=== PATIENT | male | born 1970 | race Caucasian/White ===

== ENCOUNTER 2022-03-09 08:34 | Outpatient (CLI) | payer OTHER, SELFPAY ==
[2022-03-09 18:55] LABS: SARS PCR* Negative SARS-CoV-2 (Negative)
== END 2022-03-09 08:35 | disposition home or self-care (01) ==
LOC: LONREF 08:34
PROVIDERS: PCP Orthopaedic Surgery; Visit Provider Orthopaedic Surgery
DX: Z20.822 Contact with and (suspected) exposure to COVID-19 (principal); Z01.818 Encounter for other preprocedural examination
CPT/HCPCS: 87635

== ENCOUNTER 2022-03-10 06:20 | Day surgery (SDC) | payer OTHER, SELFPAY ==
[2022-03-10] VITALS (23 sets, daily range): BP systolic 85–159; BP diastolic 51–100; PULSE 64–98; RESP 14–20; TEMP 35.7–37.3; O2SAT 91–99; BMI 39.8
[2022-03-10] MEDS: MIDAZOLAM HCL 1 MG/ML inj IVP (06:22)
[2022-03-10] MEDS: LACTATED RINGERS 1000 ML 1,000 ML 100 ML IV ×2 (06:30→08:24)
[2022-03-10] MEDS: ACETAMINOPHEN 500 MG TABLET 1000 MG PO ×3 (07:15→23:57)
[2022-03-10] MEDS: CELECOXIB 200 MG CAPSULE PO ×2 (07:15→22:19)
[2022-03-10] MEDS: OXYCODONE (CR) 10 MG TAB.ER.12H PO (07:15)
[2022-03-10] MEDS: SODIUM CHLORIDE 0.9 % (FLUSH) 10 ML SYRINGE IVF (07:16)
[2022-03-10] MEDS: ETHYL CHLORIDE 1 APPLICATION 1 APPLIC TOPICAL (07:16)
--- NOTE | 2022-03-10 07:19 | SUR.PREOP ---
TIME?OUT:?93 PT/RN VANDANA /BELLE SEGUNDO?VERIFICATION?OF?SURGICAL?SITE RIGHT KNEE,?PROCEDURE NERVE BLOCK,?AND?CONSENT OBTAINED?PRIOR?TO?INVASIVE?PROCEDURE.
[2022-03-10] MEDS: fentaNYL 100 MCG/2 ML inj IVP (07:29)
[2022-03-10] MEDS: CEFAZOLIN 1 GM inj 3 GM IVP (07:50)
[2022-03-10] MEDS: TRANEXAMIC ACID 100 MG/ML INJ 1000 MG IV (08:00)
--- NOTE | 2022-03-10 08:43 | SUR.OPER ---
Patient was transferred from Same Day Surgery Unit to OR2 by bed. Patient was assisted to transfer to the OR bed without issues. Patient was positioned per TELEPHONE OPERATORS SUPERVISOR to have spinal injection performed. Once completed patient was assisted into supine position. 2 warm blankets were provided to provide warmth and comfort.
--- NOTE | 2022-03-10 08:54 | W.PM.NB ---
Nerve Block Nerve Block Time Seen by Provider: 07:25 Type of block requested by surgeon for post-operative analgesia: adductor canal Side: right Time out performed: Yes Verification of patient name: Yes Verification of date of : Yes Site marking: site marked Name of person performing procedure: Haile Continuous monitoring Was continuous monitoring of O2 sat, B/P, surveillance system monitor, recorded every 15 minutes?: Yes Procedure Checklist: sterile prep, needles and gloves Ultrasound guided. Images saved: Yes Medications given in 5ml increments after negative aspiration: Ropivicaine %: 0.5 mL: 20 Needle gauge: 22 Decadron (mg): 10 Precedex (mcg): 25 Patient tolerated procedure well: Yes Additional comments: Needle noted adjacent to nerve Block Charges Block Charge (with Pro Fee): Femoral Nerve Use of Ultrasound Machine for Block: Yes- US Guidance/pain block
--- NOTE | 2022-03-10 08:54 | W.PM.NB ---
Nerve Block Nerve Block Time Seen by Provider: 07:25 Date Seen: 03/10/22 Type of block requested by surgeon for post-operative analgesia: geniculars Side: right Time out performed: Yes Verification of patient name: Yes Verification of date of : Yes Site marking: site marked Name of person performing procedure: Haile Continuous monitoring Was continuous monitoring of O2 sat, B/P, quality assurance monitor, recorded every 15 minutes?: Yes Procedure Checklist: sterile prep, needles and gloves Medications given in 5ml increments after negative aspiration: Ropivicaine %: 0.5 mL: 9 Needle gauge: 25 Patient tolerated procedure well: Yes Block Charges Block Charge (with Pro Fee): Genicular Nerve Block Use of Ultrasound Machine for Block: No
--- NOTE | 2022-03-10 09:36 | CRLHL7_ITS ---
For Patients: As a result of the Cures Act, medical imaging exams and procedure reports are released immediately into your electronic medical record. You may view this report before your referring provider. If you have questions, please contact your health care provider. Indication: Postop Technique: Two views right knee Findings/Impression: Hardware from a right total knee arthroplasty is in satisfactory position. Bone alignment is normal. No sign of acute fracture. Postop changes are within normal limits. Dictated by Juan Ramon Galvan MD @ 03/10/2022 10:45:13 AM (Electronically Signed)
--- NOTE | 2022-03-10 10:11 | W.ANESCHARGE ---
Anesthesia Charges Start Date/Time Anesthesia Start Date: 03/10/22 Anesthesia Start Time: 07:50 Stop Date/Time Anesthesia Stop Date: 03/10/22 Anesthesia Stop Time: 10:09 Summary Emergency: No
--- NOTE | 2022-03-10 10:42 | W.ANESCHARGE ---
Anesthesia Charges Start Date/Time Anesthesia Start Date: 03/10/22 Anesthesia Start Time: 07:50 Stop Date/Time Anesthesia Stop Date: 03/10/22 Anesthesia Stop Time: 10:09 Summary Emergency: No
[2022-03-10] MEDS: HYDROmorphone 0.5 mg/0.5 ml inj IVP ×4 (11:02→22:17)
--- NOTE | 2022-03-10 11:03 | P.ORPRC_ITS ---
Procedure Note Date of procedure: 03/10/22 Procedure: SURGEON: Royer Reyes MD TECHNICAL SOLUTIONS DIRECTOR: PAUL Morejon PREOPERATIVE DIAGNOSIS: Right knee osteoarthritis, retained hardware POSTOPERATIVE DIAGNOSIS: Right knee osteoarthritis, retained hardware NAME OF OPERATION: Right total knee arthroplasty, hardware removal deep ANESTHESIA: Spinal ESTIMATED BLOOD LOSS: 0 mL COMPLICATIONS: None SPECIMENS: None DRAINS: None PREOPERATIVE ANTIBIOTICS: Ancef 3 grams IMPLANTS: 1. J&J Attune # 8 posterior stabilized femur 2. # 8 fixed-bearing tibia 3. #8 posterior stabilized, 7 mm fixed-bearing polyethylene 4. 41 patella INDICATIONS: The patient is a 51-year-old male with a longstanding history of severe, unrelenting right knee pain secondary to end-stage (grade IV) right knee osteoarthritis. Despite appropriate nonoperative management, including activity modification, anti-inflammatories, [id number]-[id number] pain medication, bracing, physical therapy, and injections they continue to have pain and disability. Operative intervention was offered. The risks, benefits and expected outcomes were discussed in detail. These included but were not limited to: Infection, bleeding, injury to blood vessel or nerve, venous thromboembolism. All questions were answered to their satisfaction. Use of an assistant director of admissions was necessary throughout the case for patient positioning and safety, soft tissue retraction, and closure. PROCEDURE: Spinal anesthesia was administered. The patient was placed supine on the operating table. The assistant director of admissions made sure the patient was positioned appropriately. The lower extremity was prepped and draped in the usual sterile fashion. The limb was exsanguinated with the Jay bandage. The pneumatic tourniquet was inflated to 300 mmHg. A standard anterior incision was made with the knee in flexion. Subcutaneous dissection was sharply taken through fascial layer #1. Full-thickness medial and lateral flaps were elevated. The assistant director of admissions retracted the soft tissues and protected them throughout the case. A standard medial parapatellar approach was made. The patella was everted. The infrapatellar fat pad was preserved. The menisci and cruciate ligaments were sharply d?brided. Marginal osteophytes were d?brided with the rongeur. The drill was used to penetrate the femoral canal. The canal was aspirated and irrigated with pulse lavage. The intramedullary femoral guide was placed for a 5-degree valgus cut, removing 10 mm off the distal femur. We were able to avoid previously placed screw, used as a post for his previous, 2 incision, ACL reconstruction. The saw was used to make the cut. Whitesides line and the trans epicondylar axis were marked. The femoral sizing guide was pinned onto the distal femur. Three degrees of external rotation nicely parallels the transepicondylar axis. Pins were placed for posterior referencing. The fou r-in-one cutting guide was pinned onto the distal femur. The anterior, posterior, and chamfer cuts were made. The assistant director of admissions protected the collateral ligaments. The box cutting guide was pinned. The box cuts were made. The boxed trial was placed and was an excellent fit. Drill holes for the lugs were made. Attention was then turned to the proximal tibia. The extramedullary tibial guide was placed for a neutral varus/valgus cut with 5 degrees of posterior slope, removing 1 mm based off the medial tibial surface. The assistant director of admissions protected the collateral ligaments and the neurovascular bundle. The saw was used to make the cut. This exposed the tip of the tibial interference ACL reconstruction screw. Dissection was carried over medial aspect of the tibial metaphysis, locating the head of the screw. The osteotome was used to clear off the head. It was removed retrograde, intact. Trial components were placed. The knee was nicely balanced in both flexion and extension. Rotation of the tibial component was matched to the femur in full extension, matched to our tibial cutting pins, and marked with cautery. The trial components were removed. The tray was pinned by the assistant director of admissions and the drill and the punch were used. The tray was removed. The punch was used again. We placed a bone plug in the femoral canal. The tibial screw tract was bone grafted with cancellous autograft. Attention was then turned to the patella. [place] patellar thickness was 27.5 mm. The lobster claw resection guide was used with the 9.5 mm jennie. The saw was used to make the cut. Drill holes were made by the assistant director of admissions. The trial was placed and was an excellent fit. Cancellous surfaces were irrigated with pulse lavage and thoroughly dried by the assistant director of admissions. We cemented the tibial component, then the femoral component. A trial spacer was placed. The knee was brought into full extension. We then cemented the patellar component. Excessive cement was removed. The cement was allowed to harden. Any remaining excessive cement was removed with the osteotome. We impacted the 7 mm polyethylene onto the tibial tray. The knee was taken through a range of motion and was found to be nicely balanced in both flexion and extension. The patella tracks centrally. The assistant director of admissions did a three minute dilute Betadine solution soak. The assistant director of admissions irrigated the wound with 3 liters of normal saline via pulse lavage. The assistant director of admissions reapproximated the extensor mechanism with #1 Vicryl in an interrupted [id number] fashion. The assistant director of admissions then ran the extensor mechanism with a #1 PDO Stratafix. The assistant director of admissions closed the subcutaneous tissues with a 3-0 Stratafix and the skin with a running 3-0 Stratafix in a subcuticular fashion. Glue was used to seal the skin. The assistant director of admissions placed a dry dressing, SHAKILA stocking, and Polar Care. Sponge and needle counts were correct x2. The patient tolerated the procedure well. There were no apparent complications. They were carefully transferred to the hospital bed and taken to the postanesthesia care unit in satisfactory condition. PLAN: The patient will be mobilized with physical therapy. Aspirin will be used for DVT prophylaxis. They will be discharged to home once medically appropriate.
[2022-03-10 12:54] LABS: Sodium* 137 mmol/L (135-149)
[2022-03-10] MEDS: OXYCODONE 5 MG TABLET PO ×4 (13:18→22:18)
--- NOTE | 2022-03-10 14:01 | PC.NURSE ---
End of Shift Note: Patient arrive to the unit around 1100. He has steadily rated his pain a 7-8/10 but shows not signs of pain. no facial grimace is able to talk in complete sentences. Has received pain medication see MAR. Is tolerating a regular diet.
[2022-03-10] MEDS: CEFAZOLIN 3 GM in 0.9 % SODIUM CHLORIDE 100 ml 100 ML IVPB ×2 (15:45→22:20)
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
[2022-03-10] MEDS: SENNOSIDES 1 TAB TABLET 2 TAB PO (22:18)
[2022-03-10] MEDS: ATORVASTATIN 10 MG TABLET 20 MG PO (22:19)
[2022-03-10] MEDS: LORazepam 0.5 MG TABLET PO (22:19)
[2022-03-10] MEDS: ASPIRIN 81 MG TABLET EC PO (22:20)
[2022-03-10] MEDS: CYCLOBENZAPRINE HCL 10 MG TABLET PO (22:20)
[2022-03-10] MEDS: LACTATED RINGERS 1000 ML 1,000 ML 75 ML IV (22:21)
--- NOTE | 2022-03-10 23:12 | PC.NURSE ---
Patient very reluctant to ambulate this evening. Stating that when he was up with therapy this afternoon - his leg was way to unstable to be walking on it. Patient was educated on the joint surgery and the block that is in place. With encouragement, patient did end up walking to the hallway and sat up in the chair. Pt educated on keeping knee flat while in bed and patient refused to keep knee flat. Oxycodone 10mg given PRN for pain. Dilaudid given for breakthrough pain. Ativan given at bedtime to promote sleep.
[2022-03-11] MEDS: OXYCODONE 5 MG TABLET PO ×5 (00:07→10:13)
[2022-03-11] MEDS: TRAZODONE HCL 50 MG TABLET PO (00:07)
[2022-03-11 03:33] VITALS: BP 116/68; PULSE 92; RESP 18; TEMP 37.2; O2SAT 95
[2022-03-11] MEDS: CEFAZOLIN 3 GM in 0.9 % SODIUM CHLORIDE 100 ml 100 ML IVPB (05:40)
[2022-03-11] MEDS: ACETAMINOPHEN 500 MG TABLET 1000 MG PO (05:40)
[2022-03-11 07:09] LABS: Basophils Percent Auto 0.1 % (0.0-3.0); Hematocrit 34.7 % (37.0-53.0); Hemoglobin* 11.7 gm/dL (13.5-17.5); Immature Granulocytes Abs Auto 0.04 K/uL (0.00-0.30); Lymphocytes Percent Auto 5.5 % (20-44); Mean Corpuscular HGB Conc 34 gm/dL (32-36); Mean Corpuscular Hemoglobin 29 pg (26-34); Mean Corpuscular Volume 86 fL (80-100); Monocytes Percent Auto 6.8 % (0.0-11.0); Neutrophils Percent Auto 87.3 % (42.0-72.0); Platelet Count* 213 K/uL (140-440); RDW Coefficient of Variation % 13.1 % (11.5-15.5); Red Blood Count 4.05 m/uL (4.30-5.90); White Blood Count* 13.95 K/uL (4.50-11.00)
--- NOTE | 2022-03-11 07:09 | PM.DS1 ---
DS: Providers Provider Time Seen by Provider: 09:41 Date Seen: 03/11/22 Primary care physician: Genet Munoz MD Consults: 03/10/22 10:58 Consult to Occupational Therapy [CONS] Routine Comment: Reason(s) for OT Consult:: ADLs Prior to Discharge Any Restrictions?:: See Comment Comment: See nursing activity order for any restrictions. Consult to Physical Therapy [CONS] Routine Comment: Ambulate in the [place] today. Reason(s) for PT Consult:: TKA TX Protocol POD#0 Any Restrictions?:: See Comment Comment: See nursing activity order for any restrictions. Consult to Physician [CONS] Routine Comment: Consulting Provider: Hospitalists Has provider been notified: No Consult to [facility] [CONS] Routine Comment: Reason for Consult:: Discharge Planning Needs Attending Physician on discharge: Royer Reyes MD Date of Discharge: 03/11/22 DS: Diagnosis Discharge Diagnosis (1) Status post right knee replacement: Status: Acute Problem details: Plan for discharge is today to home if they meet discharge criteria. DVT prophylaxis includes aspirin 81 mg twice daily x1 month, Tarun stockings x1 month may remove for 1 hr per day, frequent ambulation, every hour throughout the day. Remove dressing in 1 week. Observe wound and phone Orthopedics with any questions or concerns Return to clinic in 1 week for a wound check Return to clinic in [address] Reyes Minimize narcotic use. Wean off and discontinue soon as possible. Activities as tolerated. No strenuous activity. Outpatient physical therapy as scheduled. Ice and elevate the operative extremity. No restriction on ice. (2) Hypokalemia: Status: Acute (3) Sleep apnea with use of continuous positive airway pressure (CPAP): Status: Acute (4) Insomnia: Status: Acute (5) GERD (gastroesophageal reflux disease): Status: Acute (6) Hypertension: Status: Acute DS: Summary Hospital Course Hospital Course: This is a 51-year-old male with human leukocyte antigen B27, cervical spondylolysis, chronic back pain, sleep apnea, insomnia, hypertension, and obesity who underwent elective right total knee arthroplasty. Surgery and postoperative course were unremarkable. His potassium was mildly low today for which he was given potassium replacement. He was discharged home in stable condition. Time Spent with Patient Time attestation: Total time spent providing and/or coordinating discharge services: Exam Narrative: Exam Narrative: General: No acute distress. Awake alert oriented. Cardiovascular: Regular rate and rhythm. No murmurs, gallops, or rubs. Chest: Clear to auscultation bilaterally. No crackles or wheezes. Abdomen: Bowel sounds present. Soft, nondistended, nontender. No hepatosplenomegaly or masses. Extremities: Right knee bandage is clean, dry, and intact. Const: Vital Signs, click to edit/add: Vital Signs - 24 hr 03/10/22 07:30 03/10/22 07:35 03/10/22 07:40 Temperature Pulse Rate 95 90 Pulse Rate [Pulse Oximeter] Respiratory Rate 16 14 14 Blood Pressure 149/100 H 123/85 125/85 Blood Pressure [Ri ght Arm] Pulse Oximetry 91 93 94 Oxygen Delivery Me thod Nasal Cannula Oxygen Flow Rate 3 03/10/22 10:06 03/10/22 10:35 03/10/22 10:10 Temperature 98.2 F Pulse Rate 96 80 92 Pulse Rate [Pulse Oximeter] Respiratory Rate 14 16 14 Blood Pressure 92/55 L 98/66 89/59 L Blood Pressure [Ri ght Arm] Pulse Oximetry 98 93 96 Oxygen Delivery Me thod OxyMask Room Air OxyMask Oxygen Flow Rate 9 9 03/10/22 10:15 03/10/22 10:20 03/10/22 10:25 Temperature 97.3 F L Pulse Rate 87 84 81 Pulse Rate [Pulse Oximeter] Respiratory Rate 14 16 16 Blood Pressure 97/52 L 91/63 85/64 L Blood Pressure [Ri ght Arm] Pulse Oximetry 99 97 94 Oxygen Delivery Me thod OxyMask OxyMask Room Air Oxygen Flow Rate 9 5 03/10/22 10:30 03/10/22 10:40 03/10/22 11:08 Temperature 96.8 F L 96.3 F L Pulse Rate 78 79 77 Pulse Rate [Pulse Oximeter] Respiratory Rate 16 16 14 Blood Pressure 93/58 L 98/66 Blood Pressure [Ri ght Arm] 103/74 Pulse Oximetry 94 96 Oxygen Delivery Me thod Room Air Room Air Room Air Oxygen Flow Rate 03/10/22 11:15 03/10/22 11:45 03/10/22 12:07 Temperature 98.6 F 98.6 F 98.6 F Pulse Rate Pulse Rate [Pulse Oximeter] 74 86 64 Respiratory Rate 20 20 20 Blood Pressure Blood Pressure [Ri ght Arm] 114/78 127/94 H 108/64 Pulse Oximetry 99 99 99 Oxygen Delivery Me thod Room Air Room Air Room Air Oxygen Flow Rate 03/10/22 13:00 03/10/22 13:15 03/10/22 14:00 Temperature 98.8 F 98.8 F 98.8 F Pulse Rate Pulse Rate [Pulse Oximeter] 92 98 93 Respiratory Rate 20 20 20 Blood Pressure Blood Pressure [Ri ght Arm] 145/78 H 109/51 L 159/91 H Pulse Oximetry 98 98 96 Oxygen Delivery Me thod Room Air Room Air Room Air Oxygen Flow Rate 03/10/22 15:00 03/10/22 18:09 03/10/22 16:00 Temperature 98 F 97.6 F 98.1 F Pulse Rate Pulse Rate [Pulse Oximeter] 95 92 Respiratory Rate 20 20 Blood Pressure Blood Pressure [Ri ght Arm] 124/88 122/76 Pulse Oximetry 93 94 Oxygen Delivery Me thod Room Air Room Air Oxygen Flow Rate 03/10/22 23:45 03/11/22 03:33 Temperature 98.6 F 98.9 F Pulse Rate Pulse Rate [Pulse Oximeter] 92 92 Respiratory Rate 16 18 Blood Pressure Blood Pressure [Ri ght Arm] 140/78 H 116/68 Pulse Oximetry 93 95 Oxygen Delivery Me thod Room Air Room Air Oxygen Flow Rate Documenting provider has reviewed patient's vital signs: yes DS: Data Data Completed and Pending Completed studies during hospitalization: Ordering Physician: Royer Reyes M.D. Date of Service: 03/10/22 Procedure(s): XR knee RT 2V Accession Number(s): [id number] cc: Genet Munoz MD; Royer Reyes M.D.~ For Patients: As a result of the Cures Act, medical imaging exams and procedure reports are released immediately into your electronic medical record. You may view this report before your referring provider. If you have questions, please contact your health care provider. Indication: Postop Technique: Two views right knee Findings/Impression: Hardware from a right total knee arthroplasty is in satisfactory position. Bone alignment is normal. No sign of acute fracture. Postop changes are within normal limits. Dictated by Juan Ramon Galvan MD @ 03/10/2022 10:45:13 AM (Electronically Signed) Labs on day of discharge: Labs from last 24 hours 03/11/22 03/10/22 06:22 12:03 WBC Pending RBC Pending Hgb Pending Hct Pending MCV Pending MCH Pending MCHC Pending Plt Count Pending Neut % (Auto) Pending Lymph % (Auto) Pending Hardeman % (Auto) Pending Eos % (Auto) Pending Baso % (Auto) Pending Neut # (Auto) Pending Lymph # (Auto) Pending Hardeman # (Auto) Pending Eos # (Auto) Pending Baso # (Auto) Pending Sodium 137 Discharge Plan Discharge Disposition: Home, Self-Care Discharging Surgeon: Royer Reyes Follow-Up Appointment: 1 week Prescriptions: New aspirin 81 mg Tablet,Delayed Release (Dr/Ec) 81 mg PO BID 30 Days Qty: 60 0RF acetaminophen 500 mg Tablet 500 - 1,000 mg PO Q6H MDD 4000 mg per day PRN (Reason: pain) Qty: 100 0RF oxycodone 5 mg Tablet 2.5 - 5 mg PO Q4-6H MDD 6 tabs per day PRN (Reason: Pain) Qty: 42 0RF Rx Instructions: Minimize. Discontinue as soon as possible sennosides [Senna Lax] 8.6 mg Tablet 17.2 mg PO BID PRN (Reason: constipation) Qty: 100 0RF Continued ascorbic acid (vitamin C) 1,000 mg tablet 1,000 mg PO DAILY atorvastatin 20 mg tablet 20 mg PO HS RABEPRAZOLE 20 mg PO DAILY cyclobenzaprine 10 mg tablet 10 mg PO BID PRN hydrochlorothiazide 25 mg tablet 25 mg PO DAILY diphenhydramine HCl [Aler-Cap] 25 mg capsule 25 mg PO Q8H PRN lorazepam 1 mg tablet 1 mg PO DAILY PRN multivitamin Tablet 1 tab PO DAILY sildenafil 50 mg tablet 50 mg PO DAILY PRN Label Comments: TAKE 1 TABLET BY MOUTH DAILY NEEDED FOR ERECTILE DYSFUNCTIONS trazodone 50 mg tablet 50 mg PO HS PRN (Reason: insomnia) Held aspirin 325 mg tablet 325 mg PO DAILY Hold Instructions: Resume on 04/11/22. Restart when finished with twice a day aspirin post op. Discontinued celecoxib 200 mg capsule 200 mg PO DAILY Rx Instructions: TCO increased dose to 1 cap AM 2 caps PM tramadol 50 mg tablet 50 mg PO TID PRN Activity Level: Activity as Tolerated and No strenuous activity Activity Detail: Keep dressing on for 1 week. Dressing is waterproof. May shower. Surgical glue covers the wound. Attend outpatient physical therapy if scheduled. Ice operative extremity without restriction. Wear compression stockings for 1 month post surgery. May remove for 1 hour per day. Ambulate every hour throughout the day. Do not drive while taking narcotic pain medication. Do not drink alcohol while taking narcotic pain medication. May drive when safe to do so and have full function of the extremities, this may take 6 weeks or more. Notify Orthopedics with any questions or concerns. ([phone]) Discharge Diet: Regular Patient Instructions: Acetaminophen (By mouth), Aspirin (By mouth), Oxycodone, Rapid Release (By mouth), Senna (By mouth), Surgical Site Infections (DC), Knee Replacement (DC) Forms: Work/Release Restrictions Follow-up: Genet Munoz MD [Primary Care Provider] - Royer Reyes MD [Staff Physician] - 03/18/22 12:20 pm (Follow up with [facility]) Discharge Orders: Discharge Order (Routine); Ordered 03/11/22 Ordered By: Royer Reyes
[2022-03-11] MEDS: LACTATED RINGERS 1000 ML 1,000 ML 75 ML IV (07:12)
[2022-03-11] MEDS: OMEPRAZOLE 20 MG CAPSULE DR PO (07:13)
[2022-03-11 07:31] LABS: Slide Review Reflex No
[2022-03-11 08:00] VITALS: BP 124/82; PULSE 98; RESP 20; TEMP 36.6; O2SAT 97
--- NOTE | 2022-03-11 08:00 | PC.NURSE ---
Shift Note 23-07: Pt resistive to standard POC, resistive to move from bed to BR, when motivated Pt moves very well with minimal SBA and satisfactory gait. Consistently rates pain 6/10, see eMAR for medication administration.
[2022-03-11 08:01] LABS: Potassium* 3.3 mmol/L (3.6-5.1)
[2022-03-11 08:04] LABS: Blood Urea Nitrogen* 18 mg/dL (7-30); Creatinine* 0.8 mg/dL (0.5-1.5); Estimated Glomerular Filt Rate 107 ml/min
[2022-03-11 08:33] LABS: INR 1.12 (0.91-1.10); Prothrombin Time 14.9 Seconds
[2022-03-11] MEDS: SENNOSIDES 1 TAB TABLET 2 TAB PO (08:33)
[2022-03-11] MEDS: ASPIRIN 81 MG TABLET EC PO (08:33)
[2022-03-11] MEDS: CELECOXIB 200 MG CAPSULE PO (08:33)
[2022-03-11] MEDS: POTASSIUM BICARB 25 MEQ EFFERVESCENT TAB PO (09:26)
--- NOTE | 2022-03-11 09:51 | REH.OT ---
Orders received for OT eval and treat. Patient distracted with therapist when approached in his room. He was briefly educated on brooke hose management. Patient wanting to wear his copper socks at home. Advised him to speak to his MD. No charge.
--- NOTE | 2022-03-11 10:04 | P.ORPN_ITS ---
Subjective Subjective Time Seen by Provider: 07:10 Date Seen: 03/11/22 Principal diagnosis: Status post right total knee arthroplasty Interval history: Luis is comfortable this morning at rest in his bed. He requests a knee immobilizer for discharge. After a previous knee surgery the car movements made his pain unbearable and he feels a knee immobilizer for the ride home only would be beneficial. I will look into this. Ortho Exam Narrative Exam Narrative: Alert and oriented x3. Patient is in no acute distress. Converses without l abored breathing. Hearing is grossly intact. Ambulates with a walker. Examination of the right knee shows the incision is with a Mepilex dressing which is intact. There is no erythema or warmth or sign of infection. Mild soft tissue edema about the right knee. Mild effusion. Bilateral calves are soft and nontender. CMS is intact right lower extremity. Appropriate quad strength. Const Vital Signs, click to edit/add: Vital Signs - 24 hr 03/10/22 10:06 03/10/22 10:35 03/10/22 10:10 Temperature 98.2 F Pulse Rate 96 80 92 Pulse Rate [Pulse Oximeter] Respiratory Rate 14 16 14 Blood Pressure 92/55 L 98/66 89/59 L Blood Pressure [Right Arm] Pulse Oximetry 98 93 96 Oxygen Delivery Method OxyMask Room Air OxyMask Oxygen Flow Rate 9 9 03/10/22 10:15 03/10/22 10:20 03/10/22 10:25 Temperature 97.3 F L Pulse Rate 87 84 81 Pulse Rate [Pulse Oximeter] Respiratory Rate 14 16 16 Blood Pressure 97/52 L 91/63 85/64 L Blood Pressure [Right Arm] Pulse Oximetry 99 97 94 Oxygen Delivery Method OxyMask OxyMask Room Air Oxygen Flow Rate 9 5 03/10/22 10:30 03/10/22 10:40 03/10/22 11:08 Temperature 96.8 F L 96.3 F L Pulse Rate 78 79 77 Pulse Rate [Pulse Oximeter] Respiratory Rate 16 16 14 Blood Pressure 93/58 L 98/66 Blood Pressure [Right Arm] 103/74 Pulse Oximetry 94 96 Oxygen Delivery Method Room Air Room Air Room Air Oxygen Flow Rate 03/10/22 11:15 03/10/22 11:45 03/10/22 12:07 Temperature 98.6 F 98.6 F 98.6 F Pulse Rate Pulse Rate [Pulse Oximeter] 74 86 64 Respiratory Rate 20 20 20 Blood Pressure Blood Pressure [Right Arm] 114/78 127/94 H 108/64 Pulse Oximetry 99 99 99 Oxygen Delivery Method Room Air Room Air Room Air Oxygen Flow Rate 03/10/22 13:00 03/10/22 13:15 03/10/22 14:00 Temperature 98.8 F 98.8 F 98.8 F Pulse Rate Pulse Rate [Pulse Oximeter] 92 98 93 Respiratory Rate 20 20 20 Blood Pressure Blood Pressure [Right Arm] 145/78 H 109/51 L 159/91 H Pulse Oximetry 98 98 96 Oxygen Delivery Method Room Air Room Air Room Air Oxygen Flow Rate 03/10/22 15:00 03/10/22 18:09 03/10/22 16:00 Temperature 98 F 97.6 F 98.1 F Pulse Rate Pulse Rate [Pulse Oximeter] 95 92 Respiratory Rate 20 20 Blood Pressure Blood Pressure [Right Arm] 124/88 122/76 Pulse Oximetry 93 94 Oxygen Delivery Method Room Air Room Air Oxygen Flow Rate 03/10/22 23:45 03/11/22 03:33 03/11/22 08:00 Temperature 98.6 F 98.9 F 97.8 F Pulse Rate Pulse Rate [Pulse Oximeter] 92 92 98 Respiratory Rate 16 18 20 Blood Pressure Blood Pressure [Right Arm] 140/78 H 116/68 124/82 Pulse Oximetry 93 95 97 Oxygen Delivery Method Room Air Room Air Room Air Oxygen Flow Rate Assessment and Plan Assessment and plan (1) Status post right knee replacement: Problem details: Plan for discharge is today to home if they meet discharge criteria. DVT prophylaxis includes aspirin 81 mg twice daily x1 month, Tarun stockings x1 month may remove for 1 hr per day, frequent ambulation, every hour throughout the day. Remove dressing in 1 week. Observe wound and phone Orthopedics with any questions or concerns Return to clinic in 1 week for a wound check Return to clinic in [address] Reyes Minimize narcotic use. Wean off and discontinue soon as possible. Activities as tolerated. No strenuous activity. Outpatient physical therapy as scheduled. Ice and elevate the operative extremity. No restriction on ice. Status: Acute (2) Insomnia: Status: Acute (3) Sleep apnea with use of continuous positive airway pressure (CPAP): Status: Acute (4) Hypertension: Status: Acute (5) GERD (gastroesophageal reflux disease): Status: Acute
--- NOTE | 2022-03-11 10:37 | PC.NURSE ---
Addendum entered by Marisela Weir RN 03/11/22 10:42: Discharge: Patient pleasant and cooperative. Patient vitally stable, lung clear, BS WNL, IV removed, catheter intact. Patient 1 assist, walker, gb with activity. Patient tolerating regular diet and urinating. Patient rating pain 6-8/10, 10 mg oxy given twice. Patient signed belongings sheet and discharge form. Patient had no further questions regarding discharge education. Patient left the floor by wheelchair with leg immobilizer applied for use on the car ride home. Patient left the floor at 1026 with spouse and belongings. Right knee surgical wound C/D/I. Original Note: Discharge: Patient pleasant and cooperative. Patient vitally stable, lung clear, BS WNL, IV removed, catheter intact. Patient 1 assist, walker, gb with activity. Patient tolerating regular diet and urinating. Patient rating pain 6-8/10, 10 mg oxy given twice. Patient signed belongings sheet and discharge form. Patient had no further questions regarding discharge education. Patient left the floor by wheelchair with leg immobilizer applied for use on the car ride home. Patient left the floor at 1026 with spouse and belongings.
== END 2022-03-11 10:26 | disposition home or self-care (01) ==
LOC: OR 06:22 → MEDSURG 15:25
PROVIDERS: PCP Nurse Practitioner Family; Visit Provider Orthopaedic Surgery
PROC: (CPT 27447; principal; 2022-03-10 07:30)
DX: M17.11 Unilateral primary osteoarthritis, right knee (principal); E87.6 Hypokalemia; I10 Essential (primary) hypertension; M43.02 Spondylolysis, cervical region; K21.9 Gastro-esophageal reflux disease without esophagitis; G89.29 Other chronic pain; M54.9 Dorsalgia, unspecified; G47.30 Sleep apnea, unspecified; E66.9 Obesity, unspecified; G47.00 Insomnia, unspecified; Z68.39 Body mass index [BMI] 39.0-39.9, adult
CPT/HCPCS: 27447; 1402; 36415; 64447; 64454; 73560; 76942; 82565; 84132; 84295; 84520; 85025; 85610; 97110; 97116; 97161; 97530; A9270; C1776; J0690; J1100; J1170; J2250; J2370; J2405; J2704; J2795; J3010; J7120

== ENCOUNTER 2022-05-20 14:15 | Outpatient (RCR) | payer OTHER, SELFPAY | END 2023-02-04 23:59 | disposition home or self-care (01) | PROVIDERS: PCP Orthopaedic Surgery; Visit Provider Orthopaedic Surgery | DX: Z96.651 Presence of right artificial knee joint (principal); Z51.89 Encounter for other specified aftercare | CPT/HCPCS: 97110; 97116; 97140; 97161; 97164 ==

== ENCOUNTER 2023-06-08 06:01 | Day surgery (SDC) | payer OTHER, SELFPAY ==
[2023-06-08] VITALS (12 sets, daily range): BP systolic 118–157; BP diastolic 75–110; PULSE 90–98; RESP 15–20; TEMP 37.1–37.9; O2SAT 94–100; BMI 40.5
[2023-06-08] MEDS: SODIUM CHLORIDE 0.9 % (FLUSH) 10 ML SYRINGE IVF (06:45)
[2023-06-08] MEDS: LACTATED RINGERS 1000 ML 1,000 ML 100 ML IV ×2 (06:45→08:16)
[2023-06-08] MEDS: CEFAZOLIN 2 GM INJ IVP (07:20)
--- NOTE | 2023-06-08 07:44 | SUR.OPER ---
PATIENT QUESTIONS ANSWERED SATISFACTORILY PREOPERATIVELY.? PATIENT BROUGHT TO OR #2 PER CART.? Patient positioned supine on OR #2 bed.? The perioperative?team supported arms bilaterally on arm boards.? Final approval of positioning by surgeon.? CONTINUOUS IRRIGATION OF THE RIGHT KNEE DURING THE PROCEDURE WITH NACL.
--- NOTE | 2023-06-08 08:00 | W.ANESCHARGE ---
Anesthesia Charges Start Date/Time Anesthesia Start Date: 06/08/23 Anesthesia Start Time: 07:07 Stop Date/Time Anesthesia Stop Date: 06/08/23
--- NOTE | 2023-06-08 08:11 | PM.ORPRC ---
Procedure Note Date of procedure: 06/08/23 Procedure: PREOPERATIVE DIAGNOSIS: Right total knee arthroplasty patellar clunk syndrome POSTOPERATIVE DIAGNOSIS: Right total knee arthroplasty patellar clunk syndrome NAME OF OPERATION: Right total knee arthroplasty arthroscopic debridement SURGEON: Royer Reyes MD FINANCIAL OPERATIONS ANALYST: PAUL Morejon ANESTHESIA: Spinal ESTIMATED BLOOD LOSS: 5 mL COMPLICATIONS: None SPECIMENS: None DRAINS: None PREOPERATIVE ANTIBIOTICS: Ancef 3 g INDICATIONS: The patient is a 52-year-old male with a history of right total knee arthroplasty patellar clunk syndrome. Operative intervention was recommended. The risks, benefits and expected outcomes were discussed in detail. These included but were not limited to: Infection, bleeding, injury to blood vessel or nerve, venous thromboembolism. All questions were answered to their satisfaction. PROCEDURE: Spinal anesthesia was administered. The patient was placed supine on the operating room table. The right lower extremity was prepped and draped in the usual sterile fashion. The limb was exsanguinated with the Jay bandage. The pneumatic tourniquet was inflated to 300 mmHg. A standard anterolateral portal was established. The arthroscope was introduced. The working portal was established anteromedially. Diagnostic arthroscopy was performed with findings as follows: The patellar component is intact with circumferential scarring surrounding it, especially under the quads tendon. The femoral component is normal, the tibial polyethylene is normal. The scarring around the patellar component was debrided with the shaver and radiofrequency probe. Arthroscopic instruments were removed, the portal sites were closed with a 3-0 nylon. Portals were injected with 0.25% Marcaine without epinephrine. A dry dressing was applied, the tourniquet was released. Sponge and needle counts were correct x 2. The patient tolerated the procedure well. There were no apparent complications. They were carefully transferred to the hospital bed and taken to the postanesthesia care unit in satisfactory condition. PLAN: The patient will be discharged to home. They may weightbear as tolerates. Range of motion will be unrestricted. They will follow up in the office in 2 weeks for a wound check.
[2023-06-08] MEDS: BUPIVACAINE 0.25% 30 ML INJECTION (08:16)
--- NOTE | 2023-06-08 08:28 | W.ANESCHARGE ---
Anesthesia Charges Start Date/Time Anesthesia Start Date: 06/08/23 Anesthesia Start Time: 07:07 Stop Date/Time Anesthesia Stop Date: 06/08/23 Anesthesia Stop Time: 08:30
[2023-06-08] MEDS: fentaNYL 100 MCG/2 ML inj 50 MCG IVP ×2 (08:33→08:41)
--- NOTE | 2023-06-08 09:03 | SUR.PHASEI ---
patient met discharge criteria per anesthesia
--- NOTE | 2023-06-08 11:38 | W.ANESCHARGE ---
Anesthesia Charges Start Date/Time Anesthesia Start Date: 06/08/23 Anesthesia Start Time: 07:07 Stop Date/Time Anesthesia Stop Date: 06/08/23 Anesthesia Stop Time: 08:30
== END 2023-06-08 10:15 | disposition home or self-care (01) ==
PROVIDERS: PCP Physician Assistant; Visit Provider Orthopaedic Surgery
PROC: (CPT 29870; principal; 2023-06-08 07:15)
DX: M25.861 Other specified joint disorders, right knee (principal)
CPT/HCPCS: 29877; 01400; J0665; J0690; J1100; J1885; J2250; J2405; J2704; J3010; J3490; J7120